=== PATIENT | male | born 1940 | race Caucasian/White ===

== ENCOUNTER → 2017-08-16 | Outpatient (CLI) | payer OTHER | LOC: CIMAGING 11:18 | PROVIDERS: ATTEND Internal Medicine Critical Care Medicine | DX: R91.8 Other nonspecific abnormal finding of lung field (principal); J44.9 Chronic obstructive pulmonary disease, unspecified; J43.2 Centrilobular emphysema | CPT/HCPCS: 71250-PO ==

== ENCOUNTER → 2018-08-01 | Outpatient (CLI) | payer OTHER | LOC: CIMAGING 10:25 | PROVIDERS: ATTEND Internal Medicine Critical Care Medicine | DX: J43.9 Emphysema, unspecified (principal); R91.1 Solitary pulmonary nodule | CPT/HCPCS: 71250-PO ==